=== PATIENT | male | born 1950 | race Caucasian/White ===

== ENCOUNTER 2016-06-17 15:10 | Inpatient (IN) | payer OTHER ==
--- NOTE | ~2016-06-17 | DS ---
Unit #: [id number] #: [id number] Patient: PINKY OVERTON [id number] [address] [address] [id number] I MR#: [id number] NAME: PINKY OVERTON ROOM: 332 Age: 66 Sex: M Admission Date: 06/17/2016 : 1950 Discharge Date: Attending Physician: Amparo Graves M.D. Primary Care Physician: Della Joyner M.D. DISCHARGE SUMMARY PRIMARY DIAGNOSES Intractable nausea and vomiting, resolved at discharge. SECONDARY DIAGNOSES 1. Pancreatic cancer, which encapsulate the superior mesenteric vein. 2. Partial superior mesenteric vein thrombosis. 3. Acute left lower lobe pneumonia. 4. Strep pyogenes sepsis secondary to pneumonia. 5. Diabetes mellitus type 2 with poor overall control. HOSPITAL COURSE The patient was admitted with nausea and vomiting, was treated symptomatically and received hydration until it is improved. Ultimately, the hydration had to be stopped and consultation was obtained with Dr. Everett with Cardiology for some suspected volume overload during the hospitalization and the patient was placed on diuretics. At the time of discharge, he will be on low-dose diuretics with instructions to stop this if at any time he is unable to hold down food. He responded well to treatment with Rocephin was changed over to Omnicef at the time of discharge. Consultants included Gastroenterology with Dr. Sanders, Infectious Disease with Dr. Mendoza, Oncology with Dr. Williamson, and Pulmonology with Dr. Guevara. Imaging included a CT of the abdomen with IV contrast, 2-view chest x-ray, CT of the head with contrast. At the time of discharge, I did review the patient's discharge summary from [facility] and noted that he is supposed to be on Creon at home as he has had associated issues of pancreatitis with his pancreatic mass and so I did resume this on his discharge medications. DISCHARGE DISPOSITION To home. DISCHARGE STATUS Stable. DISCHARGE ACTIVITY Ad mandy. DISCHARGE DIET Diabetic diet. DISCHARGE FOLLOWUP Dr. Williamson with Oncology in 2 days and he was instructed to call the office Unit #: [id number] #: [id number] Patient: PINKY OVERTON in the morning for plans to show up in the afternoon and this was reviewed with Dr. Almonte and Dr. Williamson prior to discharge. The patient is also to follow up with his PCP in 1 to 2 weeks. DISCHARGE MEDICATIONS Lovenox 100 mg subcu q.12 hours, metformin 1000 mg p.o. b.i.d., pioglitazone 45 mg p.o. q.h.s., Zofran 4 mg p.o. q.6 hours p.r.n. for nausea or vomiting, Requip 1 mg p.o. q.h.s., alprazolam 0.5 mg p.o. b.i.d. p.r.n. anxiety, it is unclear at the time of discharge whether his home dose is 0.5 or 1 mg tablets. He is advised to resume his home dose. Metoprolol tartrate 25 mg p.o. b.i.d., Lasix 20 mg p.o. b.i.d. with strict instructions to stop the medication if he is not able to hold down food, Lipitor 20 mg p.o. daily, Percocet 7.5 mg one tablet p.o. q.4 hours p.r.n. pain, omeprazole 40 mg p.o. daily, Jardiance 10 mg p.o. daily, Amaryl 4 mg p.o. b.i.d., Creon 24,000 units two tablets p.o. a.c. meals, Phenergan suppository 25 mg per rectum q.6 hours p.r.n. for vomiting, Coumadin 5 mg p.o. daily, and Omnicef 300 mg p.o. b.i.d. x7 days. Dictated by... Nguyen Washburn/emperatriz TD: 06/23/2016 01:07 JOB #: [id number] DISCHARGE SUMMARY X Dominick Miles MD X DISCHARGE SUMMARY
--- NOTE | ~2016-06-17 | CT5 ---
[facility] A Service of [facility] & [facility] RADIOLOGY TEXT RESULTS PATIENT: PINKY OVERTON LOCATION: C3A 332-01 : [birth year] UNIT #: [id number] AGE: [address]: Amparo Graves MD SEX: M ORDER DR: [id number] [facility]. [place], [place] [address] [id number] I MR#: [id number] Acc #: [id number] NAME: PINKY OVERTON : 1950 SEX: M STUDY DATE/TIME: 06/18/2016 16:12 UNIT: C3A PCU ROOM: [facility] STUDY DESCRIPTION: CT Abdomen W Cont Attending Physician: Amparo Graves M.D. Ordering Physician: Pranay Williamson M.D. Primary Care Physician: Della Joyner M.D. MEDICAL IMAGING REPORT This report is preliminary unless electronic signature is present EXAM CT abdomen with IV contrast. INDICATIONS Pancreatic adenocarcinoma. Observation for metastatic disease. Restaging. TECHNIQUE CT of the abdomen with IV contrast. Coronal and sagittal reconstructions were obtained. COMPARISON CT abdomen dated 05/16/2016, MRCP dated 05/21/2016, and PET/CT dated 06/10/2016. This CT exam was performed with one or more of the following radiation dose reduction techniques: automatic exposure control, adjustment of mA and/or kV according to patient size, and iterative reconstruction. FINDINGS Overall size of the pancreatic mass has not significantly changed from the prior study. This measures approximately 3.1 x 2.8 cm compared to 3 x 2.8 cm previously. There is mass effect and encasement of the superior mesenteric vein nearly prior to the portal confluence. There is a small volume of thrombus which has developed in the SMV and at the portal confluence. Several small peripancreatic lymph nodes are similar in size to the prior study. Degree of induration and inflammation associated with pancreatic head is similar to the prior study. Pancreatic duct is not dilated. The soft tissue extending from the pancreatic head mass does abut the right lateral margin of the SMA, however this is felt to be less than 90 degrees involvement. STS. [facility] A Service of [facility] & [facility] RADIOLOGY TEXT RESULTS PATIENT: PINKY OVERTON LOCATION: C3A 332-01 : [birth year] UNIT #: [id number] AGE: [address]: Amparo Graves MD SEX: M ORDER DR: There is dense parenchymal opacity in the right lower lobe that has developed. Please correlate for right lower lobe pneumonia. No discrete lesions are identified in the liver. Gallbladder is not distended. No intrahepatic or extrahepatic biliary dilatation. The adrenal glands, spleen, and kidneys are within normal limits. There is a small cyst lower pole left kidney. The bowel is not dilated. No acute osseous abnormalities. IMPRESSION 1. The poorly defined hypervascular mass in the pancreatic head has not significantly changed since 05/16/2016 comparison. 2. Development of increased attenuation of the central SMV and small amount of bland thrombus within the SMV and portal confluence is a new finding. 3. Small peripancreatic lymph nodes are similar to the prior study. 4. No new liver lesions. 5. No focal lesion identified in the liver. 6. Development of patchy airspace opacities in the right lung most consistent with a right lower lobe pneumonia. Please correlate with clinical symptoms. Dictated by... Jamshid Gamez M.D. THIS IS AN ELECTRONICALLY VERIFIED REPORT Jamshid Gamez M.D. at 06/19/2016 12:13 PM Ivone TD: 06/19/2016 09:11 JOB #: [id number] MEDICAL IMAGING REPORT COPY
--- NOTE | ~2016-06-17 | CT69 ---
[facility] A Service of [facility] RADIOLOGY TEXT RESULTS PATIENT: PINKY OVERTON LOCATION: [facility] 332-01 : [birth year] UNIT #: [id number] AGE: [address]: Amparo Graves MD SEX: M ORDER DR: [id number] [facility] [address] [facility]. [place], [place] [address] [id number] I MR#: [id number] Acc #: [id number] NAME: PINKY OVERTON : 1950 SEX: M STUDY DATE/TIME: 06/20/2016 12:03 [facility] STUDY DESCRIPTION: CT Head W Contrast Attending Physician: Amparo Graves M.D. Ordering Physician: Pranay Williamson M.D. Primary Care Physician: Della Joyner M.D. MEDICAL IMAGING REPORT This report is preliminary unless electronic signature is present EXAM Head CT with contrast HISTORY Pancreatic carcinoma. Lethargy with increased somnolence. Evaluate for brain malignancy suspected. TECHNIQUE Axial images were obtained with contrast. 100 mL of Isovue was used. This CT exam was performed with one or more of the following radiation dose reduction techniques: automatic control, adjustment of mA and/or kV according to patient size, and iterative reconstruction. FINDINGS Postoperative changes are seen in the left posterior parietal region. There is encephalomalacia adjacent to the skull defect. There is no evidence of mass lesion, hemorrhage or edema. No abnormal enhancement is seen. No evidence of intracranial metastatic disease or recent infarct. IMPRESSION Postoperative defect left posterior parietal lobe. No evidence of intracranial metastatic disease. No acute findings Dictated by... Roberto El M.D. THIS IS AN ELECTRONICALLY VERIFIED REPORT Roberto El M.D. at 06/21/2016 8:20 AM RLF/kevin TD: 06/20/2016 17:21 JOB #: [id number] [facility] A Service [facility] RADIOLOGY TEXT RESULTS PATIENT: PINKY OVERTON LOCATION: [facility] 332-01 : [birth year] UNIT #: [id number] AGE: [address]: Amparo Graves MD SEX: M ORDER DR: MEDICAL IMAGING REPORT COPY
--- NOTE | ~2016-06-17 | OR ---
Unit #: [id number] #: [id number] Patient: PINKY OVERTON [id number] [address] [address] [id number] I MR#: [id number] NAME: PINKY OVERTON ROOM: [facility] Date of Procedure: 06/18/2016 Admission Date: 06/17/2016 Surgeon: Clem Sanders M.D. : 1950 Attending Physician: Amparo Graves M.D. Primary Care Physician: Della Joyner M.D. OPERATIVE REPORT JOB NOTE: CC: PRIMARY CARE PHYSICIAN PROCEDURE PERFORMED Esophagogastroduodenoscopy with biopsy. INDICATIONS FOR PROCEDURE The patient with persistent nausea and vomiting, typically vomits food. He has history of pancreatic cancer, possible gastric outlet obstruction. MEDICATIONS Monitored anesthesia. POSTOPERATIVE FINDINGS 1. Small hiatal hernia. 2. Diffuse gastritis. Biopsies taken. 3. Normal duodenum and distal duodenum. No obstructive lesions were seen. PLAN We will get a gastric emptying scan for further evaluation. Continue with symptomatic treatment for now. DESCRIPTION OF PROCEDURE The patient was explained of the procedure, risks, and benefits along with risks and benefits of anesthesia. He was brought to the endoscopy room. Propofol anesthesia was given. Bite block was placed. The scope was passed down the mouth into the esophagus, stomach, duodenum, and distal duodenum. Findings as described. Biopsies taken. Gently, I pulled it out of the patient's mouth. He tolerated it well. No major complications were seen. Dictated by... Nguyen Pierre/emperatriz TD: 06/18/2016 23:40 JOB #: [id number] Unit #: [id number] #: [id number] Patient: PINKY OVERTON OPERATIVE REPORT X Clem Sanders MD X PROCEDURE OPERATIVE NOTE
--- NOTE | ~2016-06-17 | CR71 ---
[facility] A Service of [facility] RADIOLOGY TEXT RESULTS PATIENT: PINKY OVERTON LOCATION: [facility] 332-01 : [birth year] UNIT #: [id number] AGE: [address]: Amparo Graves MD SEX: M ORDER DR: [id number] [facility]. [place], [place] [address] [id number] I MR#: [id number] Acc #: [id number] NAME: PINKY OVERTON : 1950 SEX: M STUDY DATE/TIME: 06/17/2016 18:36 [facility]: [facility] STUDY DESCRIPTION: CR Chest Single View Attending Physician: Amparo Graves M.D. Ordering Physician: Mayda Chen M.D. Primary Care Physician: Della Joyner M.D. MEDICAL IMAGING REPORT This report is preliminary unless electronic signature is present EXAM Portable chest 06/17/2016 HISTORY 66-year-old male with shortness of air and right-sided chest pain for 1 week. COMPARISON: Chest 12/02/2011 FINDINGS Frontal chest demonstrates patchy opacities throughout the right lung as well as the left mid and lower lung field. This could be secondary to pneumonia or congestive failure. Correlation recommended. Heart size is upper limits. Mediastinum is unremarkable. Mild prominence of the central pulmonary vasculature. Left-sided Port-A-Cath. IMPRESSION Patchy opacities throughout the right lung as well as the left mid and lower lung field. This could be secondary to pneumonia versus early congestive failure. Mild prominence of the central pulmonary vasculature may be secondary to portable technique and poor inspiration. Correlation with clinical symptoms recommended. Dictated by... Malik Rodas M.D. THIS IS AN ELECTRONICALLY VERIFIED REPORT Malik Rodas M.D. at 06/18/2016 6:47 PM CRISTIAN/kurtis TD: 06/18/2016 09:02 [facility] A Service [facility] RADIOLOGY TEXT RESULTS PATIENT: PINKY OVERTON LOCATION: [facility] 332-01 : [birth year] UNIT #: [id number] AGE: [address]: Amparo Graves MD SEX: M ORDER DR: JOB #: [id number] MEDICAL IMAGING REPORT COPY
--- NOTE | ~2016-06-17 | HP ---
Unit #: [id number] #: [id number] Patient: PINKY OVERTON [id number] [address] [place], [place] [address] [id number] I MR#: [id number] NAME: PINKY OVERTON ROOM: 332 Age: 66 Sex: M Admission Date: 06/17/2016 : 1950 Attending Physician: Amparo Graves M.D. Primary Care Physician: Della Joyner M.D. HISTORY AND PHYSICAL REASON FOR EVALUATION Pancreatic cancer, please evaluate. HISTORY OF PRESENT ILLNESS A 66-year-old gentleman seen a few weeks ago in this institution with pancreatic mass, was transferred to [facility] where an EUS was performed and the biopsy showed adenocarcinoma but due to the fact that the mass was abutting the SMV, we decided to do outpatient chemotherapy first followed by surgery and everything was set and patient came but was unable to keep food or fluid down for the last three days and chemotherapy was not feasible. At this point, we decided to admit the patient, give him IV fluids, get Dr. Sanders to see him for upper endoscopy as he was not clinically fit to receive chemotherapy. PAST MEDICAL HISTORY His past history is negative for other cancers. Past history is positive for pneumonias as a child but no pneumonia recently. History of degenerative joint disease and chronic pain syndrome due to the degenerative joint disease being treated by Dr. Brunson with epidural blocks. ALLERGIES The patient has no known allergies. FAMILY HISTORY Positive for mother with colon cancer. SOCIAL HISTORY The patient's a few years ago. Has a twin sister and uncle in the room with him. Nonsmoker. No alcohol usage. REVIEW OF SYSTEMS Intractable abdominal discomfort. Persistent nausea and vomiting and pain. Otherwise, six or eight systems otherwise were within normal limits. PHYSICAL EXAMINATION GENERAL: On exam, she appears dehydrated. Not jaundiced. No palpable nodes. LUNGS: Crackles, mainly right sided. Increased crackles, may be a few rales. CARDIOVASCULAR: Distant S1, S2. ABDOMEN: Diffuse tenderness. No rebound. No rigidity. CENTRAL NERVOUS SYSTEM: Grossly intact. RECTAL: Not performed. Unit #: [id number] #: [id number] Patient: PINKY OVERTON IMPRESSION AND PLAN This is a 66-year-old gentleman who presents with nausea, vomiting, and dehydration, was due for chemotherapy for his pancreatic cancer whereby the plan was to give chemotherapy for a couple of cycles followed by surgery as the tumor was abutting the SMV, but we could not deliver the chemotherapy due to this persistent nausea, vomiting, dehydration, abdominal pain. The plan is to admit, IV fluids. Dr. Sanders to see. Pain control and we are going to repeat CT abdomen with pancreatic protocol to see if surgery is still an option. Dictated by Nguyen Payton/roberth TD: 06/19/2016 16:50 JOB #: [id number] HISTORY AND PHYSICAL X Pranay Williamson MD X HISTORY AND PHYSICAL
--- NOTE | ~2016-06-17 | EKG ---
PATIENT: PINKY OVERTON UNIT #: [id number] Ventricular Rate: 114 BPM Atrial Rate: 114 BPM P-R Interval: 182 ms QRS Duration: 96 ms Q-T Interval: 320 ms QTC Calculation(Bezet): 441 ms P [place]: 27 degrees Calculated R [place]: -20 degrees Calculated T [place]: 18 degrees Diagnosis Line: Sinus tachycardia Diagnosis Line: Otherwise normal ECG Diagnosis Line: When compared with ECG of 17-JUN-2016 16:38, Diagnosis Line: No significant change was found Diagnosis Line: Confirmed by DANA HAND MD ([id number]) on 06/18/2016 Diagnosis Line: 7:34:50 PM INTERPRETING MD: YAZAN TEJEDA
--- NOTE | ~2016-06-17 | DS ---
Unit #: [id number] #: [id number] Patient: PINKY OVERTON [id number] [address] [address] [id number] I MR#: [id number] NAME: PINKY OVERTON ROOM: 332 Age: 66 Sex: M Admission Date: 06/17/2016 : 1950 Discharge Date: 06/25/2016 Attending Physician: Deja Shelby M.D. Primary Care Physician: Della Joyner M.D. DISCHARGE SUMMARY ADDENDUM DISCHARGE DIAGNOSES 1. 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 2. Strep pyogenes bacteremia, now resolved. 3. Strep pyogenes pneumonia. 4. Moderate protein malnutrition. 5. Restless legs syndrome. 6. Anxiety. 7. Hyperlipidemia. 8. Gastroesophageal reflux disease. 9. Mild pancreatic insufficiency. [employer]ATH[employer] PROC[employer]OR Jose Miguel Cerda M.D., Dermatology. HOSPITAL COURSE Following last dictation, the patient has remained stable. There was discussion regarding transfer to [facility] for surgical evaluation of treatment of the patient's underlying pancreatic cancer; however, given his recent bacteremia, it is felt that this should be treated completely first before surgical evaluation. The patient is agreeable to this. I will note that on the morning of 06/24/2016, the patient developed what appeared to be a vasculitis on the dorsal aspect of his feet bilaterally. Dr. Cerda was consulted. He agreed his vasculitis just going to treat with topical steroids at this point. The patient will be discharged home today with home health. DISCHARGE CONDITION Stable. DISCHARGE STATUS Discharged home with home health for IV antibiotic administration. DISCHARGE MEDICATIONS Zofran oral disintegrating tablet 4 mg q.6 hours p.r.n. for nausea; magnesium oxide 400 mg p.o. b.i.d. for one month; Lovenox 100 mg subcutaneously q.12 hours, please note 14 days total given; metformin 1000 mg b.i.d.; Actos 45 mg at bedtime; Requip 1 mg at bedtime; alprazolam 1 tablet p.o. b.i.d. p.r.n. for anxiety; metoprolol tartrate 25 mg half a tablet p.o. b.i.d.; [place] YOST [address] units two tablets p.o. t.i.d.; Lasix 20 mg p.o. b.i.d. with an additional dose if he has increasing swelling; Unit #: [id number] #: [id number] Patient: PINKY OVERTON Lipitor 20 mg at bedtime; Percocet 7.5/325 mg one tablet p.o. q.4 hours p.r.n. for pain; omeprazole 40 mg daily; Jardiance one tablet daily; Amaryl 4 mg b.i.d.; Rocephin 1 g IV q.24 hours to stop after dose on 07/01/2016. DISCHARGE INSTRUCTIONS The patient was instructed to follow a high-protein, low-carbohydrate diet. He has been given instructions regarding compression stockings for his lower extremity swelling. He can increase activity as tolerated. Again, we will receive IV antibiotics through his port via home health. FOLLOWUP The patient will follow up Dr. Williamson next week. He has an outpatient Lexiscan scheduled for 07/03/2016 at 7:30 a.m. He will follow up with Dr. Everett, 07/31/2016 at 11 a.m. and again he will be maintained on Lovenox at least for approximately 2 weeks. Until we can determine time frame of surgical evaluation, he can always be placed back on his Coumadin [address] Williamson if surgical evaluation is going to take longer than 2 weeks to obtain. Dictated by... Deja Shelby M.D. MARY ALICE/emperatriz TD: 06/26/2016 05:23 JOB #: [id number] DISCHARGE SUMMARY Page 1 of 1 X Deja Shelby MD X DISCHARGE SUMMARY
--- NOTE | ~2016-06-17 | EKG ---
PATIENT: PINKY OVERTON UNIT #: [id number] Ventricular Rate: 120 BPM Atrial Rate: 120 BPM P-R Interval: 184 ms QRS Duration: 90 ms Q-T Interval: 312 ms QTC Calculation(Bezet): 440 ms P [place]: 32 degrees Calculated R [place]: -23 degrees Calculated T [place]: 38 degrees Diagnosis Line: Sinus tachycardia Diagnosis Line: Low voltage QRS Diagnosis Line: Borderline ECG Diagnosis Line: When compared with ECG of 02-DEC-2011 19:08, Diagnosis Line: CO interval has decreased Diagnosis Line: ST no longer elevated in Lateral leads Diagnosis Line: Confirmed by CHERRY VICTORIA MD ([id number]) on Diagnosis Line: 06/18/2016 8:18:04 AM INTERPRETING MD: JULIEN TEJEDA
--- NOTE | ~2016-06-17 | A ---
[facility] Nutrition Therapy DATE: 06/17/16 Patient: PINKY OVERTON Physician: WINIFRED Address: [address] [place] [address] Room/Bed: [address] [place] [address], Zip: [place] [address] Admit Date: 06/17/16 Date of : [birth year] Height: 5 11 Weight: 236 107.2 NUTRITIONAL ASSESSMENT: REASON: Consult RE: Poor nurition and 40# weight loss, 6 pts nutrition screen risk RE: 40# weight loss and eating poorly 66 yo male admitted for pancreatic cancer PMH: HTN, back pain, pancreatic cancer Anthropometrics: Ht: 5'11" Adm wt: 107.2 kg BMI: 33 *Please note, this weight is the same as the pt's previous admission weight despite the pt's report of weight loss. Please obtain accurate weight. Labs: none available Meds: information not available, pt recently admitted. I/O & Bowel function: none available Skin Integrity: not available Estimated Nutrition Needs: Increased protein/ calorie needs due to pacnreatic cancer and weight loss Diet: NPO Assessment: Chart reviewed, events noted. Pt recently admitted for pancreatic cancer, and admission assessment, labs, medication information not available at this time. RD spoke with the pt at bedside. Pt reports poor intake, n/v and 40# weight loss over the past 2.5 months due to pancreatic cancer diagnosis. Pt was supposed to start chemo today per his report; however, he was too weak. Pt was discharged from [facility] one month ago, and transfered to for pancreatic biopsy. Pt's last intake of solid food was Friday ([address] briefly discussed the pt's increased protein/calorie needs and supplements with him; however, he was nauseated at time of visit, not appropriate for diet education at this time. Pt is currently NPO due to n/v, RD will follow up to further assess PO intake and supplement/ diet education needs. Dx: Unintentional weight loss RT Dx, pancreatic cancer, poor appetite AEB 40# weight loss, poor intake x 2.5 months. Intervention: 1. Advance diet as tolerated [facility] Nutrition Therapy DATE: 06/17/16 Patient: PINKY OVERTON Physician: WINIFRED Address: [address] [place] [address] Room/Bed: [address] [place] [address], Zip: [place] [address] Admit Date: 06/17/16 Date of : [birth year] Height: 5 11 Weight: 236 107.2 2. Order supplements as appropriate Monitoring, Evaluation and Goals: 1. Oral intake; advance diet as tolerated, tolerate >50-75% meals 2. Weight; prevent further weight loss, preserve lean body mass 3. Nutrition; prevent dehydration and nutrient deficiency Recommendations: 1. Once medically feasible, advance to a clear liquid diet as tolerated + Ensure clear TID for supplemental nutrition. 2. If the pt is able to tolerate clear liquids, advance to high protein/ high calorie + Ensure or appropriate supplement as tolerated. 3. Obtain current accurate weight for trending purposes. 4. Pt would benefit from high protein/ high calorie diet education once appropriate. Pt is at moderate nutritional risk. RD will follow hospital course. Respectfully, SAIDA SCHUSTER RD, LD Food and Nutritional Services [facility] cc: client file
--- NOTE | ~2016-06-17 | CO ---
Unit #: [id number] #: [id number] Patient: PINKY OVERTON [id number] [address] [address] [id number] I MR#: [id number] NAME: PINKY OVERTON ROOM: 332 Age: 66 Sex: M Admission Date: 06/17/2016 : 1950 Attending Physician: Amparo Graves M.D. Primary Care Physician: Della Joyner M.D. Consultation Date: 06/18/2016 CONSULTATION REPORT REASON FOR CONSULTATION Elevated troponin. HISTORY OF PRESENT ILLNESS This is a pleasant 66-year-old male, who was recently diagnosed with pancreatic adenocarcinoma in 05/2016. The patient was a direct admit from Dr. Williamson's office as he was there to get his first chemotherapy treatment, however, it was deemed he was too ill to receive chemotherapy and sent into the hospital for direct admission. The patient reports he had not been feeling well and was having multiple episodes of nausea and vomiting, nonbloody emesis within the past 24 hours. He also was not eating or drinking well. Also reported complaints of generalized weakness and abdominal pain, was therefore, admitted for the above. We were asked to see the patient secondary to elevated troponin. Initial point of care troponin was less than 0.05, but we were asked to see due to repeat troponin of 0.07. The patient denies any complaints of chest pain, but does report complaints of increasing shortness of breath at rest and exertion for the last several weeks. Also complains of orthopnea and episodes of PND. Denies any lower extremity swelling. He has no prior cardiac history. EKG shows sinus tachycardia, rate of 114 beats per minute, QTc interval of 441 msec, no acute ischemic change. In the emergency room, the patient was given some Zofran for nausea and IV fluids for hydration purposes. Orthostatic blood pressures were performed and were within normal limits. Chest x-ray was performed, which shows patchy opacities throughout the right lung as well as the left mid and lower lung field. This could be secondary to pneumonia versus early congestive heart failure. Mild prominence of the central pulmonary vasculature may be secondary to portable technique and poor inspiration. Correlation clinically is recommended. The patient's BNP was noted to be 65. He does have some lower extremity edema present. At this time, he is sitting up in bed, he appears comfortable, in no acute distress. Again, adamantly denies any complaints of chest pain, palpitations, syncope, or near syncope. At present, denies any complaints of shortness of breath. He is currently receiving some hydration as his kidney function, creatinine is 1.5, and Oncology has ordered a CT of the abdomen with IV contrast secondary to his pancreatic adenocarcinoma. According to Oncology's note, his lesion is approximately 3 cm and appears borderline for resection. PAST MEDICAL HISTORY 1. Hypertension. Unit #: [id number] #: [id number] Patient: PINKY OVERTON 2. Newly diagnosed pancreatic adenocarcinoma in 05/2016. 3. Degenerative disk disease. 4. Chronic back pain, followed by Dr. Brunson. 5. Hyperlipidemia. 6. Diabetes mellitus, type 2. PAST SURGICAL HISTORY Epidural steroid injection. SOCIAL HISTORY Denies tobacco or illicit drug. The patient lives with his son. Occasional alcohol, the patient reports he drinks beer on occasion. He is . FAMILY HISTORY Positive for coronary artery disease with NV in his brother at age 64. ALLERGIES No known drug allergies. HOME MEDICATIONS Metformin 1000 mg p.o. b.i.d., Requip 1 mg p.o. q.h.s., Amaryl 4 mg p.o. b.i.d., Cozaar 50 mg p.o. daily, pioglitazone 45 mg p.o. q.h.s., omeprazole 40 mg p.o. daily, Lipitor 20 mg p.o. daily, [place] 7.5/325 one tab p.o. q.4 hours for back pain, alprazolam 1 tab p.o. b.i.d. p.r.n., Jardiance one tab p.o. daily. REVIEW OF SYSTEMS Positive for constipation. Significant weight loss over the last 2 to 3 months, reported as about 40 pounds. Otherwise, negative except for what was stated above in the HPI. PHYSICAL EXAMINATION VITAL SIGNS: Temperature 97.4, respiratory rate 18 to 20, pulse 84 to 112, blood pressure 91/57 to 108/71. BMI 32. GENERAL: male 66-year-old, in no acute distress. HEENT: Head is atraumatic and normocephalic. Pupils are equal and round. Mucous membranes are moist. NECK: Supple. Trachea is midline. No JVD. No carotid bruits. CARDIOVASCULAR: S1, S2. Tachycardic in the low 100s. LUNGS: Clear to auscultation anteriorly. Significantly diminished breath sounds in the bases with poor air entry. ABDOMEN: Tender to palpation. Bowel sounds are present. No distention. EXTREMITIES: Pulses are palpable with trace to 1+ edema noted. NEUROLOGIC: The patient is awake, alert, and oriented. He follows commands. Moves all extremities equally. DIAGNOSTIC STUDIES LABORATORY RESULTS: Troponin was 0.03, repeat was 0.07 BNP 65. Sodium 130, potassium 3.6, chloride 101, CO2 of 22, BUN 35, creatinine 1.5, glucose 244. Hemoglobin 11.2, hematocrit 34.5, WBCs 14.8, platelets 157. One set of his blood cultures grew gram-positive cocci in chains. IMAGING STUDIES: Chest x-ray shows patchy opacities throughout the right lung as well as left mid and lower lung field could be secondary to pneumonia versus early CHF. Unit #: [id number] #: [id number] Patient: PINKY OVERTON CT of the abdomen is currently pending. CARDIOVASCULAR STUDIES: EKG shows sinus tachycardia rate of 114 beats per minute, QTc interval 441 msec, no acute ischemic changes noted. ASSESSMENT 1. Admitted with weakness intractable nausea, vomiting, and abdominal pain. 2. Acute respiratory failure. 3. Questionable pneumonia. 4. Questionable acute heart failure. 5. Newly diagnosed pancreatic adenocarcinoma. 6. Chronic back pain. 7. Weight loss. PLAN The patient has been admitted as a direct admit from Dr. Williamson's office for secondary to intractable nausea, vomiting, and abdominal pain. He has received IV hydration and some antiemetics in the emergency room. He is currently receiving IV fluids in preparation for CT scan of the abdomen to evaluate his abdominal pain and pancreatic mass. We were asked to see the patient secondary to an elevated troponin. This is mildly elevated at 0.07. The patient denies any complaints of chest pain. He does have some complaints of shortness of breath at rest as well as with exertion, which could be an anginal equivalent. The patient does have risk factors for coronary artery disease which include hypertension, hyperlipidemia, diabetes mellitus type 2, and a family history of coronary artery disease in his brother at the age of 64. There is some question of fluid overload on his chest x-ray whether it is pneumonia versus early congestive heart failure. However, at this time, we will not diuresis as the patient is going to be receiving IV dye load today. He is currently getting hydration for that. His BNP is 65 and he is in no acute respiratory distress. Therefore, we will check 2D echocardiogram to assess LV function as well as for any valvular abnormalities. He will also get EKG today and we will check CBC, BMP, magnesium, TSH, and a lipid panel in the a.m. Dr. Everett has decided to give him a small dose of Lasix this evening at 09:00 p.m. with 10 mg IV x1. Further recommendations pending the outcome of his 2D echocardiogram. Thank you for asking us to assist with this pleasant patient. We appreciate the consult. Dictated by... Wendy Lyons/modl TD: 06/20/2016 08:49 JOB #: [id number] Unit #: [id number] #: [id number] Patient: PINKY OVERTON CONSULTATION REPORT X Lori Irizarry APRN CONSULTATION REPORT
--- NOTE | ~2016-06-17 | CR72 ---
[facility] A Service of [facility] RADIOLOGY TEXT RESULTS PATIENT: PINKY OVERTON LOCATION: C3A 332-01 : [birth year] UNIT #: [id number] AGE: [address]: Deja Shelby MD SEX: M ORDER DR: [id number] [facility] [address] [place], [place] [address] [id number] I MR#: [id number] Acc #: [id number] NAME: PINKY OVERTON : 1950 SEX: M STUDY DATE/TIME: 06/21/2016 5:32 UNIT: C3A PCU ROOM: [facility] STUDY DESCRIPTION: CR Chest Single View Portable Attending Physician: Amparo Graves M.D. Ordering Physician: Pranay Williamson M.D. Primary Care Physician: Della Joyner M.D. MEDICAL IMAGING REPORT This report is preliminary unless electronic signature is present EXAM AP portable chest, 06/21/2016 at 05:32 HISTORY 66-year-old male with shortness of breath. Pancreatic cancer. Right chest pain. Symptoms began 1 week ago but getting worse yesterday. COMPARISON PA lateral chest radiograph 06/19/[address] abdomen with contrast lung windows 06/18/2016. FINDINGS Dense consolidative type changes are present throughout the right lung, greatest in the right midlung and medial right base, and to a lesser degree left lower lobe. Allowing for differences in positioning and technique, the findings are not thought to be significantly changed. There is probable trace right pleural effusion. Stable heart size. Left chest wall Pzyc-W-Lezmknzw extends to the upper SVC level. No visible pneumothorax. IMPRESSION Allowing for slight difference in technique, the dense multifocal consolidative changes in the right lung and within the left lower lobe are not thought to be significant changed. Dictated by... Monica Benitez M.D. THIS IS AN ELECTRONICALLY VERIFIED REPORT Monica Benitez M.D. at 06/25/2016 8:38 AM RODRIGO/diane TD: 06/21/2016 11:01 [facility] A Service of [facility] RADIOLOGY TEXT RESULTS PATIENT: PINKY OVERTON LOCATION: C3A 332-01 : [birth year] UNIT #: [id number] AGE: [address]: Deja Shelby MD SEX: M ORDER DR: JOB #: [id number] MEDICAL IMAGING REPORT Page 1 of 1 COPY
--- NOTE | ~2016-06-17 | HP ---
Unit #: [id number] #: [id number] Patient: PINKY OVERTON [id number] [facility] [address] [place], [place] [address] [id number] I MR#: [id number] NAME: PINKY OVERTON ROOM: 332 Age: 66 Sex: M Admission Date: 06/17/2016 : 1950 Attending Physician: Mayda Chen M.D. Primary Care Physician: Della Joyner M.D. HISTORY AND PHYSICAL CHIEF COMPLAINT Nausea and vomiting. HISTORY OF PRESENT ILLNESS The patient is a 66-year-old male with a past medical history of pancreatic cancer and chronic back pain who was a direct admit from Dr. Williamson's office for evaluation of the above. The patient states that he has not been feeling well since June 13, 2016. He states that he has had increasing generalized weakness, nausea, and vomiting. He reports more than 10 bouts of nonbloody emesis within the past 24 hours. He also reports hiccups. He states that his last bowel movement was yesterday. He has had abdominal pain for at least the past month that he describes as "sharp." It is fairly constant in nature. There are no exacerbating or alleviating factors. He denies any fever. Of note, the patient was hospitalized at [facility] May 20-2016, for abdominal pain. He underwent MRCP and was found to have a pancreatic lesion concerning for mass. He was transferred to [facility] for further evaluation. The patient states that he was supposed to have chemotherapy today but was instead sent here for admission. PAST MEDICAL HISTORY 1. Admission to [facility] May 20-2016, for abdominal pain. He underwent MRCP and was noted to have a pancreatic mass. CA19-9 came back at 17,498. He was transferred to [facility] for endoscopic ultrasound (no records). 2. Degenerative disc disease. 3. Chronic back pain followed by Dr. Brunson. PAST SURGICAL HISTORY Epidural steroid injection. SOCIAL HISTORY The patient lives with his son. There is no tobacco or alcohol use. FAMILY HISTORY Notable for his mother have colon cancer. ALLERGIES No known allergies. HOME MEDICATIONS Unit #: [id number] #: [id number] Patient: PINKY OVERTON Per the Discharge Summary from May 24, 2016, include Tylenol, Lovenox, Actos, Requip, Xanax, Lipitor, Cozaar, sliding scale insulin, hydrocodone, Protonix, and Amaryl. Home medications will need to be reviewed and verified. REVIEW OF SYSTEMS A complete review of systems is negative except as indicated in the History of Present Illness. The patient states that he has lost about 40 pounds over the past two and a half months. PHYSICAL EXAMINATION VITAL SIGNS: Temperature is 97.4, pulse 121, respirations 20, and blood pressure 103/58. GENERAL: Patient is a male who is awake, alert, and in no acute distress. HEENT: Head is atraumatic. Mucous membranes are dry. NECK: Supple. Trachea is midline. CARDIOVASCULAR: Tachycardic in the 110s. LUNGS: Clear to auscultation bilaterally with no increased work of breathing. ABDOMEN: Soft. He is tender to palpation throughout. Bowel sounds are present in all four quadrants. EXTREMITIES: Nontender with no pedal edema. NEUROLOGIC: Patient is awake and alert. He follows commands. PSYCHIATRIC: Mood and affect are normal. Patient is cooperative. SKIN: Skin of examined areas is warm and dry. DIAGNOSTIC STUDIES Pending. ASSESSMENT The patient is a 66-year-old male with: 1. Nausea and vomiting, intractable. 2. Abdominal pain. 3. History of pancreatic cancer. 4. Chronic back pain. 5. Weight loss. PLAN 1. Admit for observation to intermediate level. 2. N.p.o. 3. Normal saline at 125 mL/hour. 4. P.r.n. morphine. 5. P.r.n. Zofran. 6. Consult Dr. Sanders regarding abdominal pain and history of pancreatic cancer. 7. Check labs including amylase and lipase. 8. Check urinalysis. 9. EKG and cardiac enzymes. 10. Protonix. 11. Get records from [facility]. 12. Consult Dr. Williamson regarding pancreatic cancer. 13. Repeat labs in the morning. 14. SCDs for DVT prophylaxis. 15. Additional workup and consultants based on above. 1. Dictated by Unit #: [id number] #: [id number] Patient: PINKY OVERTON Mayda Chen M.D. CARLINE/isiah TD: 06/17/2016 15:58 JOB #: [id number] HISTORY AND PHYSICAL X Mayda Chen MD HISTORY AND PHYSICAL
--- NOTE | ~2016-06-17 | EKG ---
PATIENT: PINKY OVERTON UNIT #: [id number] Ventricular Rate: 115 BPM Atrial Rate: 115 BPM P-R Interval: 188 ms QRS Duration: 86 ms Q-T Interval: 298 ms QTC Calculation(Bezet): 412 ms P [place]: 49 degrees Calculated R [place]: -21 degrees Calculated T [place]: 16 degrees Diagnosis Line: Sinus tachycardia Diagnosis Line: Low voltage QRS Diagnosis Line: Cannot rule out Anterior infarct , age Diagnosis Line: undetermined Diagnosis Line: Abnormal ECG Diagnosis Line: When compared with ECG of 18-JUN-2016 14:58, Diagnosis Line: Minimal criteria for Anterior infarct are now Diagnosis Line: Present Diagnosis Line: Confirmed by CHERRY VICTORIA MD ([id number]) on Diagnosis Line: 06/24/2016 8:04:19 AM INTERPRETING MD: JULIEN TEJEDA
--- NOTE | ~2016-06-17 | CO ---
Unit #: [id number] #: [id number] Patient: PINKY OVERTON [id number] [address] [address] [id number] I MR#: [id number] NAME: PINKY OVERTON ROOM: [facility] Age: 66 Sex: M Admission Date: 06/17/2016 : 1950 Attending Physician: Amparo Graves M.D. Primary Care Physician: Della Joyner M.D. CONSULTATION REPORT ADDENDUM The patient may very well need ischemic workup in the future with Cardiolite stress testing. Dictated by... Wendy Lyons/emperatriz TD: 06/20/2016 13:11 JOB #: [id number] CONSULTATION REPORT X Lori Irizarry APRN X CONSULTATION REPORT
--- NOTE | ~2016-06-17 | FU ---
[facility] Nutrition Therapy DATE: 06/20/16 Patient: PINKY OVERTON Physician: WINIFRED Address: [address] [place] [address] Room/Bed: [address] [place] [address], Zip: [place] [address] Admit Date: 06/17/16 Date of : [birth year] Height: 5 11 Weight: 242 110 NUTRITION MONITORING/FOLLOW-UP: Reason: Nutrition follow up PMH update: Pt has a h/o DM Anthropometrics: Ht: 5'11" Adm wt: 107.2 kg BMI: 33 Wt 06/20: 110 kg Labs: Na+ 133 K+ 3.4 Cl- 98 Gluc 234 BUN 28 Ca++ 8.3 Accuchecks 220-227 Meds: Novolog, lipitor, furosemide, zofran, protonix, mag-ox I&O's: , last BM 06/19 Skin: Scars- abdomen Edema: BLE 1+ Diet: Low fiber/ consistent carbohydrate diet Assessment: Chart reviewed, events noted. Pt was supposed to go for gastric emptying study, which could not be completed because the pt ate food prior to the test (per RN report). Gastric emptying study has been cancelled for now, as the pt's nausea has subsided at this time per RN report. RD spoke with the pt, who was sitting up on the bedside ready to consume his lunch (first meal of the day). Pt reported having a good appetite, and stated that he was unsure whether he would consumed one bite or the entire meal. Pt denied having c/o nausea at this time. RD discussed the pt's increased protein needs with him. Pt is agreeable to Ensure Compact, and prefers the decreased volume of compact over Glucerna supplements. RN reports the when the pt has not been NPO, he consumes a minimum of 50% of his meals. Dx: Unintentional weight loss RT pancreatic cancer, poor appetite AEB 40# weight loss, poor intake x 2.5 months. Intervention: 1. Low fiber/ consistent carbohydrate diet 2. Ensure compact TID Monitoring, Evaluation and Goals: 1. Oral intake; tolerate >50-75% meals and supplements 2. Labs; WNL [facility] Nutrition Therapy DATE: 06/20/16 Patient: PINKY OVERTON Physician: WINIFRED Address: [address] [place] [address] Room/Bed: [address] [place] [address], Zip: [place] [address] Admit Date: 06/17/16 Date of : [birth year] Height: 5 11 Weight: 242 110 3. Weight; prevent further unintentional weight loss Recommendations: 1. Ensure compact TID with meals for supplemental protein. This is a low fiber supplement, and offers a similar amount of carbohydrates as Glucerna. Pt prefers this lower volume supplement. 2. Continue low fiber/ consistent carbohydrate diet as tolerated. 3. Gradually add fiber back into the pt's diet as deemed appropriate per GI. Status: Pt is at mild-moderate nutritional risk. RD will continue to follow. Respectfully, SAIDA SCHUSTER RD, LD [employer] [facility] cc: client file
--- NOTE | ~2016-06-17 | CO ---
Unit #: [id number] #: [id number] Patient: PINKY OVERTON [id number] [address] [address] [id number] I MR#: [id number] NAME: PINKY OVERTON ROOM: 332 Age: 66 Sex: M Admission Date: 06/17/2016 : 1950 Attending Physician: Amparo Graves M.D. Primary Care Physician: Della Joyner M.D. CONSULTATION REPORT REASON FOR CONSULTATION Respiratory failure. CHIEF COMPLAINT Shortness of breath. HISTORY OF PRESENT ILLNESS This is a 66-year-old male with past medical history of pancreatic cancer and chronic pain. Presents with a complaint of nausea, vomiting, abdominal pain. Has been complaining of shortness of breath. He has been admitted with the impression of nausea, vomiting, abdominal pain. Chest x-ray showed bilateral pulmonary edema, infiltrates. I am seeing him at the bedside. He is complaining of shortness of breath. Denies any nausea, vomiting, diarrhea at present. PAST MEDICAL HISTORY 1. Pancreatic cancer. 2. Degenerative disk disease. PAST SURGICAL HISTORY Epidural steroid injection. SOCIAL HISTORY Nonsmoker. No alcohol. No drug abuse. FAMILY HISTORY Mother had colon cancer. ALLERGIES No known drug allergies. MEDICATIONS AT HOME Tylenol, Lovenox, Actos, Requip, Xanax, Lipitor, Cozaar, insulin, Protonix and Amaryl. PHYSICAL EXAMINATION VITAL SIGNS: Temperature 98, pulse rate 70, respirations 12, blood pressure 130/70. NEUROLOGIC: Awake, alert and oriented. No neuro deficits. HEENT: PERRLA. EOMI. NECK: Supple. No JVD. CHEST: Bilateral air entry. Bilateral mild rhonchi. GI: Nontender. Soft. Bowel sounds are positive. EXTREMITIES: No edema. Unit #: [id number] #: [id number] Patient: PINKY OVERTON DIAGNOSTIC STUDIES Labs and imaging have been reviewed. ASSESSMENT 1. Acute hypoxic respiratory failure. 2. Bilateral infiltrates. 3. Possible pneumonia. 4. Dehydration. 5. Acute kidney injury. PLAN At this point, plan is to get STAT blood gas, procalcitonin level and also continue the patient on IV antibiotic. Aggressive IV hydration. BNP level. Two-D echo. The patient will be closely monitored. If BNP is elevated and he is hypoxic, then we will discontinue IV fluids. Recent scan done on June 10 has been reviewed. Patient will be closely monitored. Please see orders for detailed plan. Thank you very much for this consultation. We will continue to monitor the patient. Dictated by... Nguyen Luna TD: 06/18/2016 13:32 JOB #: [id number] CONSULTATION REPORT X Artemio Guevara MD CONSULTATION REPORT
--- NOTE | ~2016-06-17 | CR63 ---
[facility] A Service of [facility] RADIOLOGY TEXT RESULTS PATIENT: PINKY OVERTON LOCATION: [facility] 332-01 : [birth year] UNIT #: [id number] AGE: [address]: Amparo Graves MD SEX: M ORDER DR: [id number] [facility] [address] [facility] [place], [place] [address] [id number] I MR#: [id number] Acc #: [id number] NAME: PINKY OVERTON : 1950 SEX: M STUDY DATE/TIME: 06/19/2016 7:09 UNIT: A U ROOM: [facility] STUDY DESCRIPTION: CR Chest 2 View Attending Physician: Amparo Graves M.D. Ordering Physician: Artemio Guevara M.D. Primary Care Physician: Della Joyner M.D. MEDICAL IMAGING REPORT This report is preliminary unless electronic signature is present EXAM PA and lateral chest, 06/19/2016 COMPARISON 06/17/2016 HISTORY Pancreatic CA with increasing shortness of breath since yesterday. FINDINGS PA and lateral chest was obtained. Cardiac size in the patient is borderline enlarged. There are worsening pulmonary infiltrates throughout the right hemithorax. Left lung remains relatively clear. Left-sided port is in place with the tip in the SVC. CONCLUSION Increasing right-sided pulmonary infiltrates. Dictated by... Lm Valdez M.D. THIS IS AN ELECTRONICALLY VERIFIED REPORT Lm Valdez M.D. at 06/19/2016 5:03 PM Janey TD: 06/19/2016 13:10 JOB #: [id number] MEDICAL IMAGING REPORT COPY
--- NOTE | ~2016-06-17 | CO ---
Unit #: [id number] #: [id number] Patient: PINKY OVERTON [id number] [address] [address] [id number] MR#: [id number] NAME: PINKY OVERTON ROOM: 332 Age: 66 Sex: M Admission Date: 06/17/2016 : 1950 Attending Physician: Amparo Graves M.D. Primary Care Physician: Della Joyner M.D. Consultation Date: 06/19/2016 CONSULTATION REPORT REASON FOR CONSULTATION Positive blood cultures. HISTORY OF PRESENT ILLNESS This is a 66-year-old gentleman who is extremely a poor historian. He has a history of pancreatic cancer, who was admitted from office for nausea, vomiting, and subjective fever along with generalized weakness, and abdominal discomfort. He also had mild cough with some pickups. His CT scan of the abdomen did not show any acute problem other than a stable pancreatic mass but there was a new findings of right lower lobe consolidation, which was confirmed by chest x-ray. In the interim, his blood culture became positive gram-positive cocci, which are turned out to be a group A strep. He was started on vancomycin, Zithromax, and ceftriaxone and ID was consulted for further evaluation. The patient is currently stable. He looks somewhat better. His vomiting has improved. Abdominal pain is persistent, but stable. He has no hematochezia, mental status changes, high-grade fever, or hypotension. According to him, the pancreatic cancer has not been treated yet and he is waiting for chemotherapy. PAST MEDICAL HISTORY 1. Pancreatic mass possible pancreatic cancer staging unclear. 2. DJD. 3. Chronic back pain. 4. History of diabetes. 5. Hyperlipidemia. 6. Hypertension. PAST SURGICAL HISTORY Epidural steroid injections. CURRENT MEDICATIONS He is on vancomycin, Lasix, Rocephin, Zithromax, Protonix, Requip, Amaryl, Cozaar, Actos, and Lipitor. ALLERGIES None. FAMILY HISTORY Colon cancer. SOCIAL HISTORY He lives with his son. Denies alcohol, drug, or tobacco abuse. Unit #: [id number] #: [id number] Patient: PINKY OVERTON SYSTEMIC REVIEW Emesis, nausea, abdominal discomfort, subjective fever, mild cough. Detail review of other systems were negative. PHYSICAL EXAMINATION GENERAL: Reveals a middle-aged male, who is awake and alert, without any acute distress. VITAL SIGNS: Temperature 98.2, no fever was documented during this admission. Blood pressure 113/70, lowest blood pressure was 91/57 on the day of admission; respirations 20; heart rate 89. HEENT: Oral hygiene is poor. Several teeth are missing. Few are caries. There is no obvious dental abscess. NECK: Supple. LUNGS: Clear to percussion and auscultation. HEART: Sounds normal. ABDOMEN: Somewhat distended, but soft and nontender. There is no rebound or guarding. Bowel sounds normal. EXTREMITIES: Lower extremity examination reveal trace edema. NEUROLOGIC: Nonfocal. DIAGNOSTIC STUDIES IMAGING STUDIES: Chest x-ray, right lower lobe infiltrate. CT scan of the abdomen and pelvis, stable pancreatic mass with right lower lobe consolidation. LABORATORY RESULTS: Sodium 134, potassium 3.7, chloride 100, CO2 of 23, BUN 32, creatinine 1.1, glucose 238. Liver function tests normal. White count 10.6, hemoglobin 12.7, platelets 178. Blood culture group A strep. Subsequent blood cultures are pending. Urine culture is negative. Lactic acid 2.2. White count on admission was 16. Urinalysis shows glucosuria. There was no evidence of UTI. IMPRESSION Group A Strep bacteremia most likely related to right lower lobe infiltrate and pneumonia, doubt port infection; however, repeat blood cultures are pending at this time. There is no evidence of cellulitis or any other source of infection. RECOMMENDATIONS I agree with ceftriaxone. We will discontinue vancomycin and Zosyn. Follow up on the repeat blood cultures. If positive, the patient will need further workup. Further recommendation will follow. Dictated by... Nguyen Covarrubias/emperatriz TD: 06/19/2016 22:45 JOB #: [id number] Unit #: [id number] #: [id number] Patient: PINKY OVERTON CONSULTATION REPORT X Julien Mendoza MD CONSULTATION REPORT
[~2016-06-17 15:10] MED LIST: ALPRAZOLAM0.25 MG PO; ALPRAZOLAM0.5 MG PO; AMARYL PO; ANEXSIA 7.5/3251 TA1 PO; COZAAR PO; GLUCOSAMINE CHO1 CA3 PO; INVOKANA300 MG PO; JARDIANCE10 MG PO; LIPITOR20 MG PO; METFORMIN HCL1000 M1 PO; NORCO 7.5-3251 EACH PO; OMEPRAZOLE40 M1 PO; PHENERGAN PO; PIOGLITAZONE45 MG PO; REQUIP0.5 MG PO; ROBAXIN500 MG PO
[2016-06-17 16:23] LABS: ALBUMIN SERUM 3.3 g/dL (3.5-5.0); BILIRUBIN,TOTAL 1.1 mg/dL (0.2-2.0); BUN/CREATININE RATIO 23.57; CALCIUM SERUM 8.3 mg/dL (8.4-10.2); CREATININE SERUM 1.4 mg/dL (0.6-1.4); GLOM FILT RATE Estimated 54.2 mL/min (>60); POTASSIUM 4.1 mmol/L (3.5-5.1); PROTEIN TOTAL SERUM 7.2 g/dL (6.0-8.3)
[2016-06-17 16:58] LABS: HEMATOCRIT 39.9 % (38.0-50.0); HEMOGLOBIN 12.6 gm/dL (13.0-16.0); MEAN CELL VOLUME 89.2 FL (83-96); MEAN CORPUSCULAR HEMOGLOBIN 28.1 PG (28-34); MEAN CORPUSCULAR HGB CONC 31.5 g/dL (30-36); RED BLOOD COUNT 4.48 X10e (3.90-5.60); RED CELL DISTRIBUTION WIDTH 14.6 % (11.0-15.5)
[2016-06-17 17:55] LABS: URINE APPEARANCE CLEAR; URINE BILIRUBIN NEG (NEG); URINE BLOOD NEG (NEG); URINE COLOR YELLOW; URINE GLUCOSE >1000 MG/DL (NEG); URINE KETONE 1+ (NEG); URINE LEUKOCYTE ESTERASE NEG (NEG); URINE NITRATE NEG (NEG); URINE PROTEIN NEG (NEG); URINE UROBILINOGEN 0.2 MG/DL (NEG)
[2016-06-17 22:53] LABS: CK TOTAL 21 IU/L (36-174)
[2016-06-18 04:22] LABS: HEMATOCRIT 34.5 % (38.0-50.0); HEMOGLOBIN 11.2 gm/dL (13.0-16.0); MEAN CORPUSCULAR HEMOGLOBIN 28.2 PG (28-34); MEAN CORPUSCULAR HGB CONC 32.5 g/dL (30-36); MEAN PLATELET VOLUME 8.6 FL (6.5-11.5); RED BLOOD COUNT 3.97 X10e (3.90-5.60); RED CELL DISTRIBUTION WIDTH 14.6 % (11.0-15.5); WHITE BLOOD COUNT 14.8 X10e3 (4.0-10.5)
[2016-06-18 04:41] LABS: CK TOTAL 32 IU/L (36-174)
[2016-06-18 05:02] LABS: ALBUMIN SERUM 2.5 g/dL (3.5-5.0); BILIRUBIN,TOTAL 0.7 mg/dL (0.2-2.0); BUN/CREATININE RATIO 23.33; CALCIUM SERUM 7.5 mg/dL (8.4-10.2); CREATININE SERUM 1.5 mg/dL (0.6-1.4); GLOM FILT RATE Estimated 50.1 mL/min (>60); POTASSIUM 3.6 mmol/L (3.5-5.1); PROTEIN TOTAL SERUM 5.6 g/dL (6.0-8.3)
[2016-06-18 12:54] LABS: ARTERIAL BLOOD GAS ALLEN TEST NORMAL; ARTERIAL BLOOD GAS ART SITE RIGHT RADIAL; ARTERIAL BLOOD GAS CARBOXY HB 0.6 %sat (0.0-9.0); ARTERIAL BLOOD GAS DELIVERY NASAL CANNULA; ARTERIAL BLOOD GAS HCO3 18.3 mmol/L; ARTERIAL BLOOD GAS MET HB 0.9 %sat (0.0-2.0); ARTERIAL BLOOD GAS PCO2 35.8 mmHg (35.0-45.0); ARTERIAL BLOOD GAS PO2 79.4 mmHg (80.0-100); ARTERIAL BLOOD GAS pH 7.315 (7.350-7.450); ARTERIAL DRAW? YES
[2016-06-19 03:38] LABS: ARTERIAL BLD GAS O2 SATURATION 94.3 % (90.0-100.0); ARTERIAL BLOOD GAS CARBOXY HB 0.6 %sat (0.0-9.0); ARTERIAL BLOOD GAS HCO3 22.5 mmol/L; ARTERIAL BLOOD GAS MET HB 0.4 %sat (0.0-2.0); ARTERIAL BLOOD GAS PCO2 40.8 mmHg (35.0-45.0); ARTERIAL BLOOD GAS pH 7.349 (7.350-7.450)
[2016-06-19 03:39] LABS: ARTERIAL BLOOD GAS ALLEN TEST Y; ARTERIAL BLOOD GAS ART SITE RIGHT RADIAL; ARTERIAL BLOOD GAS PO2 74.4 mmHg (80.0-100); ARTERIAL DRAW? YES
[2016-06-19 08:58] LABS: HEMATOCRIT 39.6 % (38.0-50.0); HEMOGLOBIN 12.7 gm/dL (13.0-16.0); MEAN CELL VOLUME 88.7 FL (83-96); MEAN CORPUSCULAR HEMOGLOBIN 28.4 PG (28-34); MEAN PLATELET VOLUME 8.6 FL (6.5-11.5); RED BLOOD COUNT 4.46 X10e (3.90-5.60); RED CELL DISTRIBUTION WIDTH 14.9 % (11.0-15.5); WHITE BLOOD COUNT 10.6 X10e3 (4.0-10.5)
[2016-06-19 09:36] LABS: ALBUMIN SERUM 2.3 g/dL (3.5-5.0); ALKALINE PHOSPHATASE 80 U/L (32-92); ALT (SGPT) 11 U/L (10-40); AST (SGOT) 16 U/L (10-42); BILIRUBIN,TOTAL 0.8 mg/dL (0.2-2.0); BLOOD UREA NITROGEN 32 mg/dL (9-23); BUN/CREATININE RATIO 29.09; CALCIUM SERUM 8.2 mg/dL (8.4-10.2); CARBON DIOXIDE 23 mmol/L (22-31); CHLORIDE 100 mmol/L (100-111); CHOLESTEROL 95 mg/dL (0-200); CREATININE SERUM 1.1 mg/dL (0.6-1.4); GLOM FILT RATE Estimated ABOVE60 mL/min (>60); GLUCOSE FASTING 238 mg/dL (70-110); HDL CHOLESTEROL 11 mg/dL (29-75); LDL CHOLESTEROL 49 mg/dL (-130); LDL/HDL RATIO 4 RATIO (0-4); MAGNESIUM 1.5 mg/dL (1.6-3.0); POTASSIUM 3.7 mmol/L (3.5-5.1); PROTEIN TOTAL SERUM 5.6 g/dL (6.0-8.3); SODIUM 134 mmol/L (135-145); TRIGLYCERIDES 176 mg/dL (10-160)
[2016-06-20 06:10] LABS: HEMATOCRIT 39.6 % (38.0-50.0); HEMOGLOBIN 12.7 gm/dL (13.0-16.0); MEAN CELL VOLUME 89.3 FL (83-96); MEAN CORPUSCULAR HEMOGLOBIN 28.8 PG (28-34); MEAN CORPUSCULAR HGB CONC 32.2 g/dL (30-36); MEAN PLATELET VOLUME 8.5 FL (6.5-11.5); RED BLOOD COUNT 4.43 X10e (3.90-5.60); WHITE BLOOD COUNT 10.7 X10e3 (4.0-10.5)
[2016-06-20 06:52] LABS: BUN/CREATININE RATIO 21.53; CALCIUM SERUM 8.3 mg/dL (8.4-10.2); CREATININE SERUM 1.3 mg/dL (0.6-1.4); GLOM FILT RATE Estimated 59.1 mL/min (>60); POTASSIUM 3.4 mmol/L (3.5-5.1)
[2016-06-21 06:00] LABS: HEMATOCRIT 39.2 % (38.0-50.0); HEMOGLOBIN 12.4 gm/dL (13.0-16.0); MEAN CELL VOLUME 88.8 FL (83-96); MEAN CORPUSCULAR HGB CONC 31.6 g/dL (30-36); MEAN PLATELET VOLUME 9.5 FL (6.5-11.5); RED BLOOD COUNT 4.42 X10e (3.90-5.60); WHITE BLOOD COUNT 14.4 X10e3 (4.0-10.5)
[2016-06-21 07:51] LABS: ALBUMIN SERUM 2.5 g/dL (3.5-5.0); ALKALINE PHOSPHATASE 91 U/L (32-92); ALT (SGPT) 15 U/L (10-40); AST (SGOT) 29 U/L (10-42); BILIRUBIN,TOTAL 0.6 mg/dL (0.2-2.0); BLOOD UREA NITROGEN 26 mg/dL (9-23); BUN/CREATININE RATIO 23.63; CALCIUM SERUM 8.8 mg/dL (8.4-10.2); CARBON DIOXIDE 22 mmol/L (22-31); CHLORIDE 100 mmol/L (100-111); CREATININE SERUM 1.1 mg/dL (0.6-1.4); GLOM FILT RATE Estimated ABOVE60 mL/min (>60); GLUCOSE FASTING 253 mg/dL (70-110); POTASSIUM 3.5 mmol/L (3.5-5.1); PROTEIN TOTAL SERUM 6.6 g/dL (6.0-8.3); SODIUM 133 mmol/L (135-145)
[2016-06-22 07:51] LABS: BASOPHIL# 0.1 X10e3 (0-0.3); EOSINOPHIL# 0.2 X10e3 (0-0.7); EOSINOPHIL% 1.7 % (0.0-7.0); HEMATOCRIT 39.2 % (38.0-50.0); HEMOGLOBIN 12.7 gm/dL (13.0-16.0); LYMPHOCYTE# 1.4 X10e3 (1.0-3.5); MEAN CELL VOLUME 87.3 FL (83-96); MEAN CORPUSCULAR HEMOGLOBIN 28.4 PG (28-34); MEAN CORPUSCULAR HGB CONC 32.5 g/dL (30-36); MEAN PLATELET VOLUME 8.5 FL (6.5-11.5); MONOCYTE# 0.7 X10e3 (0-1.0); MONOCYTE% 5.1 % (3.0-12.0); NEUTROPHIL# 11.5 X10e3 (1.5-7.1); NEUTROPHIL% 82.2 % (40-75); PLATELET COUNT 240 X10e3 (140-420); RED BLOOD COUNT 4.49 X10e (3.90-5.60); RED CELL DISTRIBUTION WIDTH 14.8 % (11.0-15.5); WHITE BLOOD COUNT 14.1 X10e3 (4.0-10.5)
[2016-06-22 07:54] LABS: DIFF IND NO
[2016-06-22 08:22] LABS: BLOOD UREA NITROGEN 26 mg/dL (9-23); CALCIUM SERUM 8.4 mg/dL (8.4-10.2); CARBON DIOXIDE 23 mmol/L (22-31); CHLORIDE 99 mmol/L (100-111); GLOM FILT RATE Estimated ABOVE60 mL/min (>60); GLUCOSE FASTING 259 mg/dL (70-110); POTASSIUM 3.7 mmol/L (3.5-5.1); SODIUM 135 mmol/L (135-145)
[2016-06-22] MEDS ORDERED: ONDANSETRON4 MG/TAB PO (12:54)
[2016-06-22] MEDS ORDERED: LOVENOX100 MG/ML INJ (12:54)
[2016-06-22] MEDS ORDERED: METOPROLOL TAR25 MG PO (12:55)
[2016-06-22] MEDS ORDERED: LASIX20 MG PO (12:56)
[2016-06-22] MEDS ORDERED: PERCOCET 71 UDTAB 71 PO (12:56)
[2016-06-22] MEDS ORDERED: CREON DR 24,001 EACH PO (12:57)
[2016-06-22] MEDS ORDERED: COUMADIN5 MG PO (12:58)
[2016-06-22] MEDS ORDERED: OMNICEF300 M1 PO (12:58)
[2016-06-22] MEDS ORDERED: PHENERGAN SUPP25 M1 PR (12:59)
[2016-06-23 04:00] LABS: ARTERIAL BLD GAS O2 SATURATION 96.6 % (90.0-100.0); ARTERIAL BLOOD GAS CARBOXY HB 0.6 %sat (0.0-9.0); ARTERIAL BLOOD GAS MET HB 0.7 %sat (0.0-2.0); ARTERIAL BLOOD GAS PCO2 37.1 mmHg (35.0-45.0); ARTERIAL BLOOD GAS PO2 86.3 mmHg (80.0-100); ARTERIAL BLOOD GAS pH 7.502 (7.350-7.450)
[2016-06-23 04:17] LABS: ARTERIAL BLOOD GAS ALLEN TEST NORMAL; ARTERIAL BLOOD GAS ART SITE RIGHT RADIAL; ARTERIAL BLOOD GAS DELIVERY ROOM AIR; ARTERIAL DRAW? YES
[2016-06-23 07:56] LABS: BASOPHIL% 0.3 % (0-2.5); EOSINOPHIL# 0.1 X10e3 (0-0.7); EOSINOPHIL% 1.2 % (0.0-7.0); HEMATOCRIT 36.3 % (38.0-50.0); HEMOGLOBIN 11.9 gm/dL (13.0-16.0); LYMPHOCYTE# 1.4 X10e3 (1.0-3.5); LYMPHOCYTE% 11.3 % (17.0-45.0); MEAN CELL VOLUME 86.3 FL (83-96); MEAN CORPUSCULAR HEMOGLOBIN 28.3 PG (28-34); MEAN CORPUSCULAR HGB CONC 32.8 g/dL (30-36); MEAN PLATELET VOLUME 7.8 FL (6.5-11.5); MONOCYTE# 0.5 X10e3 (0-1.0); MONOCYTE% 4.2 % (3.0-12.0); NEUTROPHIL# 10.2 X10e3 (1.5-7.1); PLATELET COUNT 216 X10e3 (140-420); RED BLOOD COUNT 4.21 X10e (3.90-5.60); RED CELL DISTRIBUTION WIDTH 14.6 % (11.0-15.5); WHITE BLOOD COUNT 12.4 X10e3 (4.0-10.5)
[2016-06-23 07:57] LABS: DIFF IND YES
[2016-06-23 08:12] LABS: PLATELET ESTIMATE NORMAL (NORMAL); RBC NORMAL YES
[2016-06-23 08:15] LABS: BLOOD UREA NITROGEN 25 mg/dL (9-23); CARBON DIOXIDE 28 mmol/L (22-31); CHLORIDE 95 mmol/L (100-111); GLOM FILT RATE Estimated ABOVE60 mL/min (>60); GLUCOSE FASTING 254 mg/dL (70-110); POTASSIUM 3.3 mmol/L (3.5-5.1); SODIUM 132 mmol/L (135-145)
[2016-06-24 06:16] LABS: HEMATOCRIT 35.3 % (38.0-50.0); HEMOGLOBIN 11.1 gm/dL (13.0-16.0); MEAN CELL VOLUME 87.7 FL (83-96); MEAN CORPUSCULAR HEMOGLOBIN 27.6 PG (28-34); MEAN CORPUSCULAR HGB CONC 31.5 g/dL (30-36); RED BLOOD COUNT 4.03 X10e (3.90-5.60); WHITE BLOOD COUNT 11.2 X10e3 (4.0-10.5)
[2016-06-24 09:10] LABS: INR 1.1; PROTHROMBIN TIME (PATIENT) 11.1 SECONDS (9.6-11.5)
[2016-06-24 15:46] LABS: BLOOD UREA NITROGEN 28 mg/dL (9-23); CALCIUM SERUM 7.8 mg/dL (8.4-10.2); CARBON DIOXIDE 29 mmol/L (22-31); CHLORIDE 99 mmol/L (100-111); GLOM FILT RATE Estimated ABOVE60 mL/min (>60); GLUCOSE FASTING 272 mg/dL (70-110); POTASSIUM 3.5 mmol/L (3.5-5.1); SODIUM 134 mmol/L (135-145)
[2016-06-25 05:23] LABS: HEMATOCRIT 32.8 % (38.0-50.0); HEMOGLOBIN 10.5 gm/dL (13.0-16.0); MEAN CELL VOLUME 87.5 FL (83-96); MEAN PLATELET VOLUME 8.1 FL (6.5-11.5); RED BLOOD COUNT 3.75 X10e (3.90-5.60); WHITE BLOOD COUNT 11.6 X10e3 (4.0-10.5)
[2016-06-25 06:00] LABS: BLOOD UREA NITROGEN 29 mg/dL (9-23); CALCIUM SERUM 7.5 mg/dL (8.4-10.2); CARBON DIOXIDE 30 mmol/L (22-31); CHLORIDE 98 mmol/L (100-111); GLOM FILT RATE Estimated ABOVE60 mL/min (>60); GLUCOSE FASTING 170 mg/dL (70-110); POTASSIUM 3.5 mmol/L (3.5-5.1); SODIUM 135 mmol/L (135-145)
[2016-06-25] MEDS ORDERED: MAGNESIUM400 MG PO (12:53)
[2016-06-25] MEDS ORDERED: MS CONTIN15 MG PO (13:01)
[2016-06-25] MEDS ORDERED: CEFTRIAXONE1 GM IV (13:04)
[2016-06-25] MEDS ORDERED: FUTURO RESTORI1 EACH (13:06)
[2016-06-25] MEDS ORDERED: CLOBETASOL 0.0560 GM TD (13:06)
== END 2016-06-25 14:41 | disposition home health service (06) | DRG 871 ==
LOC: C3A PCU 15:10
PROVIDERS: Family Medicine; Internal Medicine; Internal Medicine Cardiovascular Disease; Internal Medicine Medical Oncology; Nurse Practitioner Family
PROC: 0DB68ZX Excision of Stomach, Via Natural or Artificial Opening Endoscopic, Diagnostic (ICD-10-PCS; principal; 2016-06-18 09:54)
PROC: B24BYZZ Ultrasonography of Heart with Aorta using Other Contrast (ICD-10-PCS; 2016-06-19)
DX: A40.0 Sepsis due to streptococcus, group A (principal); I81 Portal vein thrombosis; J96.01 Acute respiratory failure with hypoxia; J18.9 Pneumonia, unspecified organism; C25.9 Malignant neoplasm of pancreas, unspecified; N17.9 Acute kidney failure, unspecified; E86.0 Dehydration; E44.0 Moderate protein-calorie malnutrition; I50.9 Heart failure, unspecified; R10.9 Unspecified abdominal pain; M54.9 Dorsalgia, unspecified; G89.29 Other chronic pain; R11.2 Nausea with vomiting, unspecified; E78.5 Hyperlipidemia, unspecified; M19.90 Unspecified osteoarthritis, unspecified site; K44.9 Diaphragmatic hernia without obstruction or gangrene; K29.60 Other gastritis without bleeding; R00.0 Tachycardia, unspecified; L95.9 Vasculitis limited to the skin, unspecified; Z68.33 Body mass index [BMI] 33.0-33.9, adult; G25.81 Restless legs syndrome; F41.9 Anxiety disorder, unspecified
CPT/HCPCS: 36600; 70460; 71010; 71020; 74160; 80048; 80053; 80061; 80202; 81003; 82150; 82550; 82803; 82947; 83605; 83690; 83735; 83880; 84443; 84484; 85025; 85027; 85610; 87040; 87070; 87077; 87086; 87186; 87205; 88305; 88312; 93005; 93306; 94760; 97110; 97116; 97162; 97166; 97535; C9113; J0456; J0696; J1170; J1650; J1815; J1940; J2270; J2405; J2550; J3370; Q9967

== ENCOUNTER → 2016-07-01 | Outpatient (CLI) | payer OTHER ==
[~2016-07-01] MED LIST changes: +CEFTRIAXONE1 GM IV; +CLOBETASOL 0.0560 GM TD; +COUMADIN5 MG PO; +CREON DR 24,001 EACH PO; +FUTURO RESTORI1 EACH; +LASIX20 MG PO; +LOVENOX100 MG/ML INJ; +MAGNESIUM400 MG PO; +METOPROLOL TAR25 MG PO; +MS CONTIN15 MG PO; +OMNICEF300 M1 PO; +ONDANSETRON4 MG/TAB PO; +PERCOCET 71 UDTAB 71 PO; +PHENERGAN SUPP25 M1 PR
--- NOTE | ~2016-07-01 | ST ---
Unit #: [id number] #: [id number] Patient: PINKY OVERTON [id number] [address] [address] [id number] O MR#: [id number] NAME: PINKY OVERTON : 1950 SEX: M STUDY DATE/TIME: UNIT: [facility] ROOM: STUDY DESCRIPTION: Stress Test Attending Physician: Dominique Everett M.D. Referring Physician: Dominique Everett M.D. Primary Care Physician: Della Joyner M.D. CARDIOLOGY REPORT EXAM Lexiscan Cardiolite Stress Test DESCRIPTION Baseline EKG - normal sinus rhythm with ventricular rate 98 beats/minute, slow R wave progression. Lexiscan is a four minute test with Lexiscan being injected within the first minute followed by Cardiolite. EKG during the test was equivocal to baseline. No acute ischemic changes. The patient had no complaints of chest pain, palpitations or dizziness. Had increased shortness of breath and fatigueness which resolved in recovery phase. Maximum heart rate response was 113 beats per minute with a maximum blood pressure response 147/93 mmHg. Cardiolite was injected after Lexiscan within the first minute of the test. Radionuclide test pending. Please correlate with nuclear images. Dictated by... Valerie McphersonPLaurynRSasha for Nguyen Badillo/sabrina TD: 07/01/2016 09:19 JOB #: [id number] CARDIOLOGY REPORT Page 1 of 1 X Karen Barney APRN CARDIOLOGY REPORT
--- NOTE | ~2016-07-01 | TH ---
Unit #: [id number] #: [id number] Patient: PINKY OVERTON [id number] [address] [id number] O MR#: [id number] NAME: PINKY OVERTON : 1950 SEX: M STUDY DATE/TIME: 07/01/2016 UNIT: CN ROOM: STUDY DESCRIPTION: Attending Physician: Dominique Everett M.D. Referring Physician: Dominique Everett M.D. Primary Care Physician: Della Joyner M.D. CARDIOLOGY REPORT EXAM Lexiscan Cardiolite stress test, nuclear portion. PROCEDURE Using technetium 99m labeled Cardiolite, rest and stress SPECT images were obtained. Multiple SPECT images were obtained in various views including horizontal and vertical long axis and short axis views of the left ventricle. Images were obtained by gated SPECT method. The patient was administered 11.33 mCi of Cardiolite at rest. The patient was administered 34.2 mCi of Cardiolite after Lexiscan infusion was completed. On the stress images, there is a small area of mild decreased isotope activity inferiorly. The rest images also show a mild area of decreased isotope activity inferiorly. Comparing rest and stress images, there is a small area of predominantly fixed defect seen inferiorly of unclear significance. The left ventricular ejection fraction is calculated to be 57%. There is no focal wall motion abnormality seen. CONCLUSION 1. No obvious stress-induced ischemia noted. 2. There is a small area of predominantly fixed defect seen inferiorly, cannot rule out old inferior wall myocardial infarction versus soft tissue artifact. 3. The left ventricular ejection fraction is calculated to be 57%. 4. There is no focal wall motion abnormality seen. 5. Technically limited study. Clinical correlation is requested. Dictated by... Nguyen Baidllo TD: 07/01/2016 11:38 JOB #: [id number] Unit #: [id number] #: [id number] Patient: PINKY OVERTON CARDIOLOGY REPORT Page 1 of 1 X Dominique Everett MD <ELECTRONICALLY SIGNED> 10/26/16 1429 CARDIOLOGY REPORT
== END | disposition home or self-care (01) ==
LOC: CNUC 06:16
DX: Z01.818 Encounter for other preprocedural examination (principal)
CPT/HCPCS: 78452; 93017; A9500; J2785

== ENCOUNTER → 2016-08-28 | Outpatient (CLI) | payer OTHER ==
--- NOTE | ~2016-08-28 | CT2 ---
[facility] A Service of [facility] RADIOLOGY TEXT RESULTS PATIENT: PINKY OVERTON LOCATION: [facility] : 54 UNIT #: [id number] AGE: [address]: Pranay Williamson MD SEX: M ORDER DR: [id number] [facility] [address] [place], [place] [address] [id number] O MR#: [id number] Acc #: [id number] NAME: PINKY OVERTON : 1950 SEX: M STUDY DATE/TIME: 08/28/2016 16:27 UNIT: [facility] ROOM: STUDY DESCRIPTION: CT Abd and Pelv W Cont Attending Physician: Pranay Williamson M.D. Referring Physician: Pranay Williamson M.D. Ordering Physician: Pranay Williamson M.D. Primary Care Physician: Della Joyner M.D. MEDICAL IMAGING REPORT This report is preliminary unless electronic signature is present EXAM CT abdomen and pelvis, 08/28/2016. INDICATIONS Jaundice for 2 days. Abdominal pain and right upper quadrant pain as well. Patient has relatively recent diagnosis of pancreas and liver cancer. TECHNIQUE Axial images were obtained through the abdomen and pelvis following oral and IV contrast administration. Multiplanar reformats were obtained. Comparison is made with 07/14/16. This CT exam was performed with one or more of the following radiation dose reduction techniques: automatic exposure control, adjustment of mA and/or kV according to patient size, and iterative reconstruction. FINDINGS ABDOMEN: Minimal atelectasis is noted in the lung bases. There is a 7 mm nodule in the lingula. This previously measured 4 mm on 05/16/2016. This could reflect metastatic disease. The gallbladder is nearly hydropic with a short-axis diameter of 4.9 cm. It is otherwise unremarkable. There is mild intra and extrahepatic biliary ductal dilatation which is presumably secondary to the pancreatic head mass. Common bile duct measures about 18 mm in diameter. 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 Additionally, I believe the proximal portion of the SMV is thrombosed on this exam where it was previously opacified on 06/18/16. Hypodense mass in the head of the pancreas is again seen. It measures roughly 4.6 x 4.3 cm in size. It previously measured about 4.8 x 4.7 cm. This is probably not significantly changed allowing for differences in scan technique. Left renal cyst is unchanged. No free fluid. No adenopathy is identified. The GI tract is normal. PELVIS: Urinary bladder is normal. There is mild sigmoid diverticulosis. [facility] A Service of [facility] RADIOLOGY TEXT RESULTS PATIENT: PINKY OVERTON LOCATION: [facility] : 54 UNIT #: [id number] AGE: [address]: Pranay Williamson MD SEX: M ORDER DR: The GI tract is otherwise normal. Not mentioned above is splenomegaly. The spleen has a tmls-nr-wamh length of 17.1 cm. No suspicious osseous lesions are identified in the abdomen or pelvis. Multiple subcutaneous nodules in the ventral abdominal wall are probably sites of medication injection. Correlate clinically. IMPRESSION 1. No malignant mass in the head of the pancreas is not significantly changed. 2. Nearly hydropic but otherwise normal-appearing gallbladder. There is mild intra and extrahepatic biliary ductal dilatation. This is presumably secondary to the pancreatic mass. Pancreatic duct is not dilated. 3. There is an apparent enlarging nodule in the lingula concerning for potential metastatic disease. 4. Splenomegaly. 6. No acute findings in the GI tract. 7. Interval resolution of ascites. 8. Soft tissue nodules in the ventral abdominal wall are presumably sites of medication injection. Correlate clinically in this regard. 9. 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 There is apparent new thrombus in the proximal SMV. STAT * RESULT Dictated by... Roberto Ding Jr., M.D. THIS IS AN ELECTRONICALLY VERIFIED REPORT Roberto Ding Jr., M.D. at 08/28/2016 6:32 PM ALLA/woodrow TD: 08/28/2016 17:27 JOB #: [id number] MEDICAL IMAGING REPORT Page 1 of 1 COPY
[2016-08-28 16:11] LABS: POC - CREATININE 1.16 mg/dL (0.64-1.27); POC - GFR >60.0 mL/min (>60)
== END | disposition home or self-care (01) ==
LOC: CCAT 14:58
PROVIDERS: Internal Medicine Medical Oncology
DX: C25.3 Malignant neoplasm of pancreatic duct (principal); K82.8 Other specified diseases of gallbladder; R16.1 Splenomegaly, not elsewhere classified
CPT/HCPCS: 74177; 82565; Q9967